=== PATIENT | male | born 1960 | race Caucasian/White ===

== ENCOUNTER → 2020-11-12 | Outpatient (CLI) | payer BC ==
--- NOTE | 2020-11-12 14:03 | CT ---
EXAMINATION TYPE: CT chest w con DATE OF EXAM: 11/12/2020 COMPARISON: None HISTORY: Mediastinal adenopathy CT DLP: 445.8 mGycm Automated exposure control for dose reduction was used. CONTRAST: CT scan of the chest is performed with IV Contrast, patient injected with 100 mL of Isovue 300. FINDINGS: LUNGS: The lungs are grossly clear, there is no concerning parenchymal mass or nodule identified. T here is no pleural effusion or pneumothorax seen. The tracheobronchial tree is patent. Mediastinum and hilar structures: There is evidence of a mediastinal and hilar adenopathy. Right para tracheal lymph nodes measure up to 1 cm. Low right paratracheal lymph nodes measure up to 1.5 cm. AP window adenopathy measures up to 1.2 cm. Subcarinal adenopathy measures up to 1.8 cm. Left hilar alo opathy measures up to 1.8 cm. Right hilar adenopathy measures up to 1.8 cm. UPPER ABDOMEN: No significant abnormality appreciated. OTHER: No additional significant abnormality is seen. IMPRESSION: Nonspecific mediastinal and hilar adenopathy.
== END | disposition home or self-care (01) ==
LOC: RADCTMAIN 12:51
PROVIDERS: ATTEND Urology
DX: R59.0 Localized enlarged lymph nodes (principal); D38.3 Neoplasm of uncertain behavior of mediastinum
CPT/HCPCS: 71260; Q9967

== ENCOUNTER → 2021-03-28 | Outpatient (CLI) | payer OTHER ==
--- NOTE | 2021-03-28 15:23 | XR ---
EXAMINATION TYPE: XR lumbar spine 2 or 3V DATE OF EXAM: 03/28/2021 CLINICAL HISTORY: Back pain after lifting injury. TECHNIQUE: Frontal and lateral images of the lumbar spine are obtained. COMPARISON: None. FINDINGS: There are 5 lumbar type vertebral bodies identified. The lumbar spine shows straightened alignment without evidence of acute fracture or dislocation. Vertebral body heights are within normal limits. Mild to moderate multilevel disc space narrowing with relative sparing of L4-L5 level. Mild multilevel anterior spurring. The overlying soft tissue appears unremarkable. IMPRESSION: As above.
== END | disposition home or self-care (01) ==
LOC: RADXRMAIN 15:00
PROVIDERS: ATTEND Emergency Medicine
DX: M51.36 Other intervertebral disc degeneration, lumbar region (principal); X50.0XXA Overexertion from strenuous movement or load, initial encounter
CPT/HCPCS: 72100

== ENCOUNTER → 2021-04-15 | Outpatient (CLI) | payer BC ==
--- NOTE | 2021-04-15 10:07 | CT ---
EXAMINATION TYPE: CT chest w con DATE OF EXAM: 04/15/2021 COMPARISON: Chest CT November 12, 2020 HISTORY: Localized enlarged lymph nodes CT DLP: 421.6 mGycm. Automated Exposure Control for Dose Reduction was Utilized. TECHNIQUE: CT scan of the thorax is performed following with IV Contrast, patient injected with 100 mL of Isovue 300. FINDINGS: LUNGS: Mild right apical linear scarring redemonstrated. No new or enlarging greater than 5 mm pulmon mercedes nodules or masses. No pleural effusion or pneumothorax seen bilaterally. MEDIASTINUM: There are persistent abnormal enlarged thoracic lymph nodes. . Reference right paratrach eal lymph node measures 2.4 x 1.7 cm axial image 22 similar to prior study image 24. Prominent border line enlarged prevascular and AP window lymph nodes lung with additional paratracheal lymph nodes. St able enlarged 2.1 x 1.8 cm anterior right hilar lymph node axial image 27. Stable enlarged 3.3 x 1.6 cm subcarinal lymph node on axial image 31. No cardiomegaly or pericardial effusion is seen. OTHER: Small sized hiatal hernia redemonstrated. Stable nonspecific hypodense lesion right hepatic lo be axial image 52 presumed benign. Few scattered colonic diverticula are redemonstrated. Mild multile gali spurring in the spine. Flame-shaped bilateral subareolar gynecomastia redemonstrated. IMPRESSION: Stable nonspecific thoracic adenopathy without pulmonary parenchymal nodules or masses. C orrelate clinically.
== END | disposition home or self-care (01) ==
LOC: RADCTMAIN 09:25
PROVIDERS: ATTEND Internal Medicine Hematology & Oncology
DX: R59.0 Localized enlarged lymph nodes (principal)
CPT/HCPCS: 71260; Q9967

== ENCOUNTER → 2021-08-13 | Outpatient (CLI) | payer BC, OTHER | END | disposition home or self-care (01) | LOC: LABWHC1 20:39 | PROVIDERS: ATTEND Emergency Medicine | DX: U07.1 COVID-19 (principal) | CPT/HCPCS: 87635 ==

== ENCOUNTER → 2021-08-13 | Outpatient (CLI) | payer BC, OTHER | END | disposition home or self-care (01) | LOC: LABWHC1 06:44 | PROVIDERS: ATTEND Emergency Medicine | DX: Z20.822 Contact with and (suspected) exposure to COVID-19 (principal) | CPT/HCPCS: 87635 ==

== ENCOUNTER → 2022-02-10 | Outpatient (CLI) | payer BC ==
--- NOTE | 2022-02-10 12:25 | CT ---
EXAMINATION TYPE: CT abdomen pelvis w con DATE OF EXAM: 02/10/2022 COMPARISON: None HISTORY: Prostate cancer. CT DLP: 1349.1 mGycm CONTRAST: CT scan of the abdomen and pelvis is performed with Oral Contrast and with IV Contrast, patient injec david with 70ml mL of Isovue 300. FINDINGS: LUNG BASES-: No visible nodule. No infiltrate. LIVER/GB: No calcified gallstones. 8 mm cyst at the dome of the liver. No solid hepatic lesions are detected. Biliary tree is of normal caliber. PANCREAS: No inflammation. No distinct mass. SPLEEN: No splenic enlargement. No lesion seen. ADRENALS: No nodule. No thickening. KIDNEYS/BLADDER: No hydronephrosis. No nephrolithiasis. No distinct renal mass. Urinary bladder g rossly unremarkable. BOWEL: Normal appendix. Normal bowel caliber. No inflammation. GENITAL ORGANS: The prostate fossa is free of distinct mass or prostatic tissue. LYMPH NODES: No greater than 1cm abdominal or pelvic lymph nodes are appreciated. AORTA: No significant abnormality. OSSEOUS STRUCTURES: No significant abnormality is seen. OTHER: No significant additional abnormality is seen. IMPRESSION: 1. No CT evidence to suggest metastatic disease or recurrent disease.
== END | disposition home or self-care (01) ==
LOC: RADCTMAIN 10:03
PROVIDERS: ATTEND Urology
DX: C61 Malignant neoplasm of prostate (principal)
CPT/HCPCS: 74177; Q9967

== ENCOUNTER → 2022-05-23 | Outpatient (CLI) | payer BC ==
--- NOTE | 2022-05-23 22:20 | XR ---
EXAMINATION TYPE: XR chest 2V DATE OF EXAM: 05/23/2022 COMPARISON: Chest x-ray 11/15/2014 HISTORY: R06.9, history prostate carcinoma, shortness of breath TECHNIQUE: Frontal and lateral views of the chest are obtained. FINDINGS: There is no focal air space opacity, pleural effusion, or pneumothorax seen. The cardiac silhouette size is within normal limits. The osseous structures are intact. IMPRESSION: No acute cardiopulmonary process.
== END | disposition home or self-care (01) ==
LOC: RADXRMAIN 09:41
PROVIDERS: ATTEND Internal Medicine
DX: R06.9 Unspecified abnormalities of breathing (principal)
CPT/HCPCS: 71046

== ENCOUNTER 2023-01-23 03:12 | Emergency (ER) | payer BC ==
[2023-01-23 03:21] VITALS: BP 136/88; PULSE 82; RESP 16; TEMP 97.6
--- NOTE | 2023-01-23 03:46 | ED ---
General Adult HPI - General Chief complaint: ENT Stated complaint: LUMP ON NECK Time Seen by Provider: 01/23/23 03:27 Source: patient Mode of arrival: ambulatory - History of Present Illness Initial comments: Dictation was produced using [employer] dictation software. please excuse any grammatical, word or spelling errors. Chief Complaint: 63-year-old male presents with left submental lymphadenopathy History of Present Illness: This 63-year-old male presents emergency Department with palpable lymph node. States that is not painful it is however noticeable. Patient recently started a prostate cancer medication. Denies any fever or constitutional symptoms. No other lymph nodes noted. The ROS documented in this emergency department record has been reviewed and confirmed by me. Those systems with pertinent positive or negative responses have been documented in the HPI. All other systems are other negative and/or noncontributory. - Related Data Home Medications Medication Instructions Recorded Confirmed Omeprazole [PriLOSEC] 20 mg PO AC-BRKFST 05/28/15 06/02/15 Leuprolide Acetate [Lupron Depot] 7.5 mg IM ONCE 09/13/22 09/13/22 Metoprolol Succinate (ER) [Toprol 12.5 mg PO DAILY 09/13/22 09/13/22 XL] Previous Rx's Medication Instructions Recorded Albuterol Sulfate [Albuterol 1 puff PO Q4-6H PRN #8.5 gm 09/13/22 Sulfate Hfa] Azithromycin [Zithromax] 250 mg PO DIRECTED 5 Days #6 tab 09/13/22 Promethazine/Dextromethorphan 5 ml PO Q4-6H PRN #118 ml 09/13/22 [Promethazine-Dm Syrup] predniSONE 50 mg PO DAILY 5 Days #5 tablet 09/13/22 Allergies Allergy/AdvReac Type Severity Reaction Status Date / Time No Known Allergies Allergy Verified 01/23/23 03:20 Review of Systems ROS Statement: Those systems with pertinent positive or pertinent negative responses have been documented in the HPI. ROS Other: All systems not noted in ROS Statement are negative. Past Medical History Past Medical History: GERD/Reflux, Prostate Disorder Additional Past Medical History / Comment(s): prostate CA, sleep apnea History of Any Multi-Drug Resistant Organisms: None Reported Past Surgical History: Hernia Repair, Prostate Surgery Additional Past Surgical History / Comment(s): eye surgery Past Psychological History: No Psychological Hx Reported Smoking Status: Never smoker Past Alcohol Use History: None Reported Past Drug Use History: None Reported General Exam - General Exam Comments Initial Comments: PHYSICAL EXAM: General Impression: Alert and oriented x3, not in acute distress HEENT: Normocephalic atraumatic, extra-ocular movements intact, pupils equal and reactive to light bilaterally, mucous membranes moist, 1.5 x 1.5 cm submandibular lymph node on the left Cardiovascular: Heart regular rate and rhythm Chest: Able to complete full sentences, no retractions, no tachypnea Musculoskeletal: no peripheral edema Motor: no focal deficits noted Neurological: CN II-XII grossly intact, no focal motor or sensory deficits noted Skin: Intact with no visualized rashes Psych: Normal affect and mood Course Vital Signs 01/23/23 03:13 Temperature 97.6 F Pulse Rate 82 Respiratory 16 Rate Blood Pressure 136/88 O2 Sat by Pulse 100 Oximetry Medical Decision Making - Medical Decision Making Was pt. sent in by a medical professional or institution (, PA, FOSTER CARE WORKER, urgent care, hospital, or longterm...) When possible be specific @ -No Did you speak to anyone other than the patient for history (EMS, parent, family, police, friend...)? What history was obtained from this source @ -No Did you review nursing and triage notes (agree or disagree)? Why? @ -I reviewed and agree with nursing and triage notes Were old charts reviewed (outside hosp., previous admission, EMS record, old EKG, old radiological studies, urgent care reports/EKG's, longterm records)? Report findings @ -No old charts were reviewed Differential Diagnosis (chest pain, altered mental status, abdominal pain women, abdominal pain men, vaginal bleeding, musculoskeletal, weakness, fever, dyspnea, syncope, headache, dizziness, GI bleed, back pain, seizure, CVA, palpatations, mental health)? @ -Lymphoma, leukemia, reactive lymphadenopathy, facial infection EKG interpreted by me (3pts min.). @ -None done X-rays interpreted by me (1pt min.). @ -None done CT interpreted by me (1pt min.). @ -None done U/S interpreted by me (1pt. min.). @ -None done What testing was considered but not performed or refused? (CT, X-rays, U/S, labs)? Why? @ -None What meds were considered but not given or refused? Why? @ -None Did you discuss the management of the patient with other professionals (professionals i.e. , PA, FOSTER CARE WORKER, lab, RT, psych nurse, geriatric social work professor, take off worker, teacher, fire prevention officer, bilingual case manager)? Give summary @ -No Was smoking cessation discussed for >3mins.? @ -No Was critical care preformed (if so, how long)? @ -No Were there social determinants of health that impacted care today? How? (Homelessness, low income, unemployed, alcoholism, drug addiction, t ransportation, low edu. Level, literacy, decrease access to med. care, correction, rehab)? @ -No Was there de-escalation of care discussed even if they declined (Discuss DNR or withdrawal of care, Hospice)? DNR status @ -No What co-morbidities impacted this encounter? (DM, HTN, Smoking, COPD, CAD, Cancer, CVA, ARF, Chemo, Hep., AIDS, mental health diagnosis, sleep apnea, morbid obesity)? @ -None Was patient admitted / discharged? Hospital course, mention meds given and route, prescriptions, significant lab abnormalities, going to OR and other pertinent info. @ -63-year-old male presents with left submandibular lymphadenopathy. Vital signs stable. No leukocytosis. Patient advised follow-up with primary care doctor for outpatient management of lymphadenopathy. Undiagnosed new problem with uncertain prognosis? @ -No Drug Therapy requiring intensive monitoring for toxicity (Heparin, Nitro, Insulin, Cardizem)? @ -No Were any procedures done? @ -No Diagnosis/symptom? Acute, or Chronic, or Acute on Chronic? Uncomplicated (with out systemic symptoms) or Complicated (systemic symptoms)? @ -Lymphadenopathy Side effects of treatment? @ -No Exacerbation, Progression, or Severe Exacerbation? @ -No Poses a threat to life or bodily function? How? (Chest pain, [place], [place], pneumonia, PE, COPD, DKA, ARF, appy, cholecystitis, CVA, Diverticulitis, Homicidal, Suicidal, threat to staff... and all critical care pts) @ -No - Lab Data Result diagrams: 01/23/23 04:17 01/23/23 03:44 Lab Results 06/17/23 06/17/23 Range/Units 03:44 04:17 WBC 4.8 (3.8-10.6) k/uL RBC 4.71 (4.30-5.90) m/uL Hgb 13.7 (13.0-17.5) gm/dL Hct 39.5 (39.0-53.0) % MCV 83.9 (80.0-100.0) fL MCH 29.0 (25.0-35.0) pg MCHC 34.6 (31.0-37.0) g/dL RDW 13.7 (11.5-15.5) % Plt Count 165 (150-450) k/uL MPV 8.0 Neutrophils % 74 % Lymphocytes % 14 % Monocytes % 7 % Eosinophils % 3 % Basophils % 0 % Neutrophils # 3.6 (1.3-7.7) k/uL Lymphocytes # 0.7 L (1.0-4.8) k/uL Monocytes # 0.3 (0-1.0) k/uL Eosinophils # 0.2 (0-0.7) k/uL Basophils # 0.0 (0-0.2) k/uL Sodium 138 (137-145) mmol/L Potassium 4.0 (3.5-5.1) mmol/L Chloride 105 (98-107) mmol/L Carbon Dioxide 26 (22-30) mmol/L Anion Gap 7 mmol/L BUN 21 H (9-20) mg/dL Creatinine 0.72 (0.66-1.25) mg/dL Est GFR (CKD-EPI)AfAm >90 (>60 ml/min/1.73 sqM) Est GFR (CKD-EPI)NonAf >90 (>60 ml/min/1.73 sqM) Glucose 92 (74-99) mg/dL Calcium 9.1 (8.4-10.2) mg/dL Disposition Clinical Impression: Lymphadenopathy Disposition: HOME SELF-CARE Condition: Good Instructions (If sedation given, give patient instructions): Lymphadenopathy (ED) Is patient prescribed a controlled substance at d/c from ED?: No Referrals: Narinder Fierro MD [Primary Care Provider] - 1-2 days Time of Disposition: 04:39
[2023-01-23 04:24] LABS: African American GFR (CKD) >90 (>60 ml/min/1.73 sqM); Anion Gap 7 mmol/L; Blood Urea Nitrogen 21 mg/dL (9-20); Calcium 9.1 mg/dL (8.4-10.2); Carbon Dioxide 26 mmol/L (22-30); Chloride 105 mmol/L (98-107); Glucose 92 mg/dL (74-99); Non-African American GFR(CKD) >90 (>60 ml/min/1.73 sqM); Sodium 138 mmol/L (137-145)
[2023-01-23 04:35] LABS: Basophils % (A) 0 %; Eosinophils # (A) 0.2 k/uL (0-0.7); Eosinophils % (A) 3 %; HCT 39.5 % (39.0-53.0); HGB 13.7 gm/dL (13.0-17.5); Lymphocytes # (A) 0.7 k/uL (1.0-4.8); Lymphocytes % (A) 14 %; MCHC 34.6 g/dL (31.0-37.0); MCV 83.9 fL (80.0-100.0); Monocytes # (A) 0.3 k/uL (0-1.0); Monocytes % (A) 7 %; Neutrophils # (A) 3.6 k/uL (1.3-7.7); Neutrophils % (A) 74 %; Platelet Count 165 k/uL (150-450); RBC 4.71 m/uL (4.30-5.90); RDW 13.7 % (11.5-15.5); WBC 4.8 k/uL (3.8-10.6)
== END 2023-01-23 04:43 | disposition home or self-care (01) ==
LOC: EC 03:12
DX: R59.1 Generalized enlarged lymph nodes (principal); K21.9 Gastro-esophageal reflux disease without esophagitis; Z79.899 Other long term (current) drug therapy
CPT/HCPCS: 36415; 80048; 85025; 99283

== ENCOUNTER → 2023-02-18 | Outpatient (CLI) | payer BC ==
--- NOTE | 2023-02-18 12:34 | MR ---
EXAMINATION TYPE: MR knee RT wo con DATE OF EXAM: 02/18/2023 COMPARISON: X-ray 01/27/2023 HISTORY: Right knee pain TECHNIQUE: Multiplanar, multisequence imaging of the right knee is performed without IV contrast. FINDINGS: MEDIAL MENISCUS: There is abnormal signal in the posterior horn and body of the medial meniscus dwight tible with mucoid degeneration. LATERAL MENISCUS: Anterior and posterior horns are intact without tear. CRUCIATE LIGAMENTS: The anterior and posterior cruciate ligaments are intact and unremarkable. COLLATERAL LIGAMENTS: The medial collateral ligament and lateral collateral ligament complex are inta ct and unremarkable. EXTENSOR MECHANISM: Visualized quadriceps and patellar tendons are intact. EFFUSION: No significant suprapatellar joint effusion. POPLITEAL CYST: There is a septated popliteal fossa cyst measuring 2.3 cm in greatest dimension. A p osterior to the distal diaphysis femur there is additional 2.3 cm multiseptated cystic structure. May represent a ganglion cyst. TRICOMPARTMENT SPACES: Mild narrowing in the medial compartment knee joint. No erosive changes. CARTILAGE: There is grade II chondromalacia involving the medial patellar facet measuring 3 mm. Fibri llation of the medial femoral articular cartilage also noted. BONE MARROW SIGNAL: Benign cysts seen within the proximal tibia. There is an area of marrow edema christy suring 5 mm within the lateral tibia likely reactive.. OTHER: No additional significant abnormality is appreciated. IMPRESSION: 1. Degenerative posterior horn medial meniscal tear with partial extrusion. 2. There is a 2.3 cm septated popliteal fossa cyst. Additional 2.3 septated cyst posterior to the dis dilshad diaphysis femur most likely represents a ganglion cyst. 3. Intrasubstance signal within the ACL suggestive of a ACL sprain or interstitial tear. No through t hickness tear. 4. Localized grade II chondromalacia of the medial femoral articular and medial patellar facet.
== END | disposition home or self-care (01) ==
LOC: RADMRIMAIN 10:15
PROVIDERS: ATTEND Orthopaedic Surgery
DX: S83.241A Other tear of medial meniscus, current injury, right knee, initial encounter (principal); M71.21 Synovial cyst of popliteal space [Baker], right knee; M94.261 Chondromalacia, right knee

== ENCOUNTER → 2023-03-10 | Outpatient (CLI) | payer BC ==
[2023-03-10 20:54] LABS: Basophils # (A) 0.03 X 10*3/uL (0.00-0.10); Basophils % (A) 0.5 %; Eosinophils # (A) 0.13 X 10*3/uL (0.04-0.35); Eosinophils % (A) 2.1 %; HCT 43.7 % (39.6-50.0); HGB 14.3 d/dL (13.0-17.0); Lymphocytes # (A) 1.08 X 10*3/uL (0.90-5.00); Lymphocytes % (A) 17.4 %; MCH 29.4 pg (27.0-32.0); MCHC 32.7 d/dL (32.0-37.0); MCV 89.7 FL (80.0-97.0); Mean Platelet Volume 10.8 FL (9.5-12.2); Monocytes # (A) 0.51 X 10*3/uL (0.20-1.00); Monocytes % (A) 8.2 %; NRBC Per 100 WBC 0 X 10*3/uL (0.00-0.01); Neutrophils # (A) 4.44 X 10*3/uL (1.80-7.70); Neutrophils % (A) 71.3 %; Platelet Count 225 X 10*3/uL (140-440); RBC 4.87 X 10*6/uL (4.40-5.60); RDW 13.6 % (11.5-14.5); WBC 6.22 X 10*3/uL (4.50-10.00)
[2023-03-10 21:04] LABS: Anion Gap 9.9 mmol/L (4.00-12.00); Carbon Dioxide 30.1 mmol/L (21.6-31.8); Potassium 4.7 mmol/L (3.5-5.5)
== END | disposition home or self-care (01) ==
LOC: LABWHC1 14:27
PROVIDERS: ATTEND Orthopaedic Surgery
DX: Z01.818 Encounter for other preprocedural examination (principal); M23.91 Unspecified internal derangement of right knee; I44.4 Left anterior fascicular block; R94.31 Abnormal electrocardiogram [ECG] [EKG]
CPT/HCPCS: 36415; 80051; 85025; 93005

== ENCOUNTER → 2023-03-31 | Day surgery (SDC) | payer BC ==
[2023-03-23 15:57] VITALS: BMI 30.5
--- NOTE | 2023-03-30 14:15 | HP ---
HISTORY AND PHYSICAL DATE OF SURGERY: 03/31/2023. HISTORY OF PRESENT ILLNESS: Armando Weinstein is a 63-year-old gentleman seen with progressive right knee pain. We discussed options for treatment. He elected to proceed with right knee arthroscopy. Consent regarding procedure was obtained. PAST MEDICAL HISTORY: Hypertension. PAST SURGICAL HISTORY: Herniorrhaphy. DAILY MEDICATIONS: 1. Metoprolol. 2. Ibuprofen. ALLERGIES: None. SOCIAL HISTORY: Denies tobacco use. PHYSICAL EVALUATION OF THE RIGHT KNEE: Range of motion is 0 to 125 degrees. Mild effusion. Tenderness, medial joint line. Positive medial Zhao's. Ligaments stable. Hip rotation without pain. Distal neurovascular exam intact. RADIOGRAPHS: Right knee radiographs revealed mild osteoarthritis. MRI of right knee revealed medial meniscal tear and popliteal cyst. IMPRESSION: 1. Internal derangement of right knee with medial meniscal tear. 2. Hypertension. PLAN: Right knee arthroscopy with partial medial meniscectomy and debridement. MMODL / IJN: [id number] /
[~2023-03-31] MED LIST: BUPIVACAINE (PF) 0.25% 10 ML VIAL MISCELLANE ONE; DEXAMETHASONE SOD PHOSPHATE 4 MG/ML 1 ML VIAL IV ONE; HYDROmorphone 0.5 MG/0.5 ML SYRINGE IVP PRN; LACTATED RINGERS 1,000 ML IV SCH; LIDOCAINE 2% INJ 20 MG/ML (2 ML VIAL) ONE; MIDAZOLAM 2 MG/2 ML VIAL ONE; ONDANSETRON 4 MG/2 ML VIAL IVP ONE; PROPOFOL 10 MG/ML 20 ML VIAL IV ONE; fentaNYL (PF) 50 MCG/ML 2 ML AMP ONE
[2023-03-31 10:47] VITALS: TEMP 97.5
--- NOTE | 2023-03-31 10:47 | P.OP ---
Date of Procedure: 03/31/23 Preoperative Diagnosis: Internal derangement right knee Postoperative Diagnosis: 1. Tear medial and lateral meniscus right knee 2. Grade 4 chondromalacia medial femoral condyle right knee 3. Reactive synovitis medial, lateral and suprapatellar compartments right knee Procedure(s) Performed: 1. Arthroscopic partial medial and lateral meniscectomy right knee 2. Arthroscopic microfracture medial femoral condyle right knee 3. Arthroscopic partial synovectomy medial, lateral and suprapatellar compartments Anesthesia: GUNNARA, local Surgeon: Rodney Beckwith Estimated Blood Loss (ml): 6 Pathology: none sent Condition: stable Disposition: PACU Indications for Procedure: 63-year-old gentleman seen with progressive right knee pain. After treatment options were discussed, he elected to proceed with arthroscopy. Operative Findings: See description of procedure Description of Procedure: Patient was taken to the operative suite. Patient underwent a general anesthetic by the department of anesthesia. Patient was given preoperative antibiotics. The right lower extremity was placed in a well-padded arthroscopic leg tompkins. The right leg was prepped and draped in the normal sterile orthopedic fashion. A lateral parapatellar and suprapatellar incision was made. Trochars were inserted. Arthroscopy was initiated. Suprapatellar pouch revealed diffuse thick reactive synovitis. The patellofemoral joint appeared to articulate congruently. There was grade 1 chondromalacia the patella without success osteochondral tears.. The scope was guided into the medial gutter. No loose bodies or plica were identified. The scope was then guided into the medial compartment. A medial parapatellar incision was made. Trocar inserted followed by probe. There was a complex tear involving the posterior horn of the medial meniscus. There was one area of grade 4 chondromalacia involving the posterior aspect of the medial femoral condyle weightbearing surface measuring about 1 cm. There was some thick reactive synovitis anteriorly. I performed a partial medial meniscectomy getting down to stable meniscal tissue. I performed a chondroplasty of the medial femoral condyle getting down to stable osteochondral tissue. I performed a partial synovectomy decompressing the thick reactive synovitis. I now introduced a microfracture awl and performed a microfracture to that area of exposed bone medial femoral condyle penetrating the bone with resultant bleeding at the microfracture site. The residual meniscus was probed and was found to be stable. There was good decompression of the synovitis. Scope and probe were then guided into the intercondylar notch. Cruciates were identified, probed and found to be stable. The scope and probe were then guided into lateral compartment. There was a radial tear involving the posterior horn lateral meniscus. There were grade 1 chondromalacia changes of the lateral femoral condyle and tibial plateau. There was some thick reactive synovitis anteriorly. I performed a partial lateral meniscectomy getting down to stable meniscal tissue. I performed a partial synovectomy decompressing the thick reactive synovitis anteriorly. The residual meniscus was probed and was found to be stable. There was good decompression of the synovitis. The scope was in guided back into the suprapatellar compartment. I introduced a motorized shaver into the suprapatellar compartment. I debrided some piecemeal fragments of meniscus that I encountered. I performed a partial synovectomy. Shaver was now removed. There was good decompression of the synovitis. I now took one more look around the entire knee, no residual debris. Instruments were now removed from the joint. The joint was infiltrated with .25% Marcaine. Steri-Strips were applied to the portal sites. Sterile dressings were applied. The patient was placed into a CADY hose. No tourniquet was utilized. The patient was awakened, transferred to a bed and taken to recovery stable satisfactory condition.
[2023-03-31 12:32] VITALS: BP 120/62; PULSE 66; RESP 12
== END | disposition home or self-care (01) ==
LOC: OR 08:39
PROVIDERS: ATTEND Orthopaedic Surgery
DX: S83.231A Complex tear of medial meniscus, current injury, right knee, initial encounter (principal); S83.281A Other tear of lateral meniscus, current injury, right knee, initial encounter; M65.161 Other infective (teno)synovitis, right knee; M22.41 Chondromalacia patellae, right knee; I10 Essential (primary) hypertension; G47.33 Obstructive sleep apnea (adult) (pediatric); X58.XXXA Exposure to other specified factors, initial encounter; Z79.891 Long term (current) use of opiate analgesic; Z79.1 Long term (current) use of non-steroidal anti-inflammatories (NSAID); Z79.899 Other long term (current) drug therapy; Z98.890 Other specified postprocedural states
CPT/HCPCS: 29880; 29879; J2250; J1100; J0690; J2405; J3010; J2704; J2001; J0665

== ENCOUNTER → 2023-05-12 | Outpatient (CLI) | payer BC ==
--- NOTE | 2023-05-15 14:21 | MR ---
EXAMINATION TYPE: MR knee LT wo con DATE OF EXAM: 05/12/2023 COMPARISON: Outside left knee x-rays May 04, 2023 HISTORY: Left Knee pain in kneecap for years. TECHNIQUE: Multiplanar, multisequence images of the knee is performed without IV contrast. FINDINGS: MEDIAL MENISCUS: Triangular area of horizontal increased signal posterior horn does not definitively extend to articular surface. LATERAL MENISCUS: Anterior and posterior horns are intact without tear. CRUCIATE LIGAMENTS: The anterior and posterior cruciate ligaments are intact and unremarkable. COLLATERAL LIGAMENTS: The medial collateral ligament and lateral collateral ligament complex are inta ct and unremarkable. EXTENSOR MECHANISM: Visualized quadriceps and patellar tendons are intact. EFFUSION: Small size suprapatellar joint effusion. POPLITEAL CYST: No popliteal/patterson cyst. TRICOMPARTMENT SPACES: Mild to moderate tricompartment joint space loss without significant spurring. CARTILAGE: Tricompartmental articular cartilage is preserved. BONE MARROW SIGNAL: No focal abnormal marrow signal is appreciated. OTHER: No additional significant abnormality is appreciated. IMPRESSION: 1. Buir-kz-vyucably joint compartment degenerative changes as detailed above. 2. Small-sized suprapatellar joint effusion. 3. Intrasubstance tear posterior horn of medial meniscus, no full-thickness meniscal or ligamentous t ear clearly seen.
== END | disposition home or self-care (01) ==
LOC: RADMRIMAIN 10:55
PROVIDERS: ATTEND Orthopaedic Surgery
DX: M17.12 Unilateral primary osteoarthritis, left knee (principal); M23.322 Other meniscus derangements, posterior horn of medial meniscus, left knee; M25.462 Effusion, left knee

== ENCOUNTER → 2023-05-17 | Outpatient (CLI) | payer BC ==
[2023-05-17 16:24] LABS: Prostate Specific Antigen <0.01 ng/mL (0.000-4.500)
== END | disposition home or self-care (01) ==
LOC: LABWHC1 08:32
PROVIDERS: ATTEND Urology
DX: C61 Malignant neoplasm of prostate (principal)
CPT/HCPCS: 36415; 84153; 84403

== ENCOUNTER 2023-06-24 07:50 | Day surgery (SDC) | payer BC ==
--- NOTE | 2023-06-24 01:31 | HP ---
HISTORY AND PHYSICAL DATE OF SURGERY: 06/24/2023. HISTORY OF PRESENT ILLNESS: Armando Weinstein is a 63-year-old gentleman seen progressive left knee pain. We discussed options for treatment. He elected to proceed with left knee arthroscopy. Consent is obtained. PAST MEDICAL HISTORY: Hypertension. PAST SURGICAL HISTORY: Herniorrhaphy. MEDICATIONS: Metoprolol, ibuprofen. ALLERGIES: None. SOCIAL HISTORY: Denies tobacco use. PHYSICAL EVALUATION OF THE LEFT KNEE: His range of motion is 0 to 125 degrees. Mild effusion. Tenderness along the medial lateral joint lines. Positive medial Zhao's. Ligaments stable. Hip rotation without pain. Distal neurovascular exam is intact. IMAGING STUDIES: Left knee radiographs reveal mild osteoarthritis, left knee. MRI revealed medial meniscal tear. IMPRESSION: 1. Internal derangement of left knee medial meniscal tear. 2. Hypertension. PLAN: Left knee arthroscopy with partial medial meniscectomy and debridement. MMODL / IJN: [id number] /
[~2023-06-24 07:50] MED LIST changes: -BUPIVACAINE (PF) 0.25% 10 ML VIAL MISCELLANE ONE; +LIDOCAINE 1% (10MG/ML) FOR IV START INTRADERMA PRN; -LIDOCAINE 2% INJ 20 MG/ML (2 ML VIAL) ONE; -MIDAZOLAM 2 MG/2 ML VIAL ONE; -PROPOFOL 10 MG/ML 20 ML VIAL IV ONE; +droPERidol 5 MG/2 ML VIAL IVP ONE; -fentaNYL (PF) 50 MCG/ML 2 ML AMP ONE
[2023-06-24 08:19] VITALS: TEMP 96.9
[2023-06-24] MEDS ORDERED: BUPIVACAINE (PF) 0.25% 30 ML VIAL MISCELLANE ONE ×2 (09:22→10:04)
[2023-06-24] MEDS ORDERED: MIDAZOLAM 2 MG/2 ML VIAL ONE (09:24)
[2023-06-24] MEDS ORDERED: LIDOCAINE 1% INJ 10MG/ML (20 ML MDV) ONE (09:24)
[2023-06-24] MEDS ORDERED: fentaNYL (PF) 50 MCG/ML 2 ML AMP ONE (09:24)
[2023-06-24] MEDS ORDERED: PROPOFOL 10 MG/ML 20 ML VIAL IV ONE (09:24)
[2023-06-24] MEDS ORDERED: KETOROLAC 15 MG/ML 1 ML VIAL ONE (09:24)
--- NOTE | 2023-06-24 10:21 | P.OP ---
Date of Procedure: 06/24/23 Preoperative Diagnosis: Internal derangement left knee Postoperative Diagnosis: 1. Tear medial meniscus left knee 2. Grade 4 chondromalacia femoral sulcus left knee 3. Reactive synovitis medial, lateral and suprapatellar compartments left knee 4. Grade 2 chondromalacia medial femoral condyle left knee 5. Medial plica left knee Procedure(s) Performed: 1. Arthroscopic partial medial meniscectomy left knee 2. Arthroscopic microfracture femoral sulcus left knee 3. Arthroscopic partial synovectomy medial, lateral and suprapatellar compartments left knee 4. Arthroscopic chondroplasty medial femoral condyle left knee 5. Arthroscopic resection medial plica left knee Anesthesia: GUNNARA, local Surgeon: Rodney Beckwith Estimated Blood Loss (ml): 5 Pathology: none sent Condition: stable Disposition: PACU Indications for Procedure: 63-year-old patient seen with progressive left knee pain. After having treatment options discussed, he elected to proceed with arthroscopy. Operative Findings: see description of procedure Description of Procedure: Patient was taken to the operative suite. Patient underwent a general anesthetic by the department of anesthesia. Patient was given preoperative antibiotics. The left lower extremity was placed in a well-padded arthroscopic leg tompkins. The left leg was prepped and draped in the normal sterile orthopedic fashion. A lateral parapatellar and suprapatellar incision was made. Trochars were inserted. Arthroscopy was initiated. Suprapatellar pouch revealed diffuse thick reactive synovitis. The patellofemoral joint appeared to articulate congruently. There as grade 3/4 chondromalacia involving the femoral sulcus with some peripheral osteochondral flap tears present. I couldn't visualize an area of exposed bone as well.. The scope was guided into the medial gutter. No loose bodies were identified. There was a plica that impinged along the medial femoral condyle with range of motion. The scope was then guided into the medial compartment. A medial parapatellar incision was made. Trocar inserted followed by probe. There was a tear involving the posterior horn of the medial meniscus. There were grade 2 chondromalacia changes of the medial femoral condyle with a large osteochondral flap tear. There was thick reactive synovitis anteriorly. I performed a partial medial meniscectomy getting down to stable meniscal tissue. I performed a chondrop lasty of the medial femoral condyle getting down to stable osteochondral tissue. I performed a partial synovectomy decompressing the reactive synovitis anteriorly. The residual meniscus was probed and was found to be stable. The residual osteochondral surface was stable. There was good decompression of the synovitis anteriorly. Scope and probe were then guided into the intercondylar notch. Cruciates were identified, probed and found to be stable. The scope and probe were then guided into lateral compartment. Lateral meniscus was probed and was found to be stable. There was no chondromalacia present. There was some reactive synovitis anteriorly. I introduced a motorized shaver and I performed a partial synovectomy decompressing the thick reactive synovitis. I noted good decompression of the synovitis. The scope was in guided back into the suprapatellar compartment. I introduced a motorized shaver into the suprapatellar compartment. I debrided some piecemeal fragments of meniscus I encountered. I now resected that plica. I took the knee through range of motion noted complete resection of the plica with no impingement medially. I now performed a chondroplasty of the femoral sulcus getting down to stable osteochondral tissue. I again noted that area of exposed bone. I introduced a microfracture awl and I performed a microfracture to the area of exposed bone penetrating the bone with resultant bleeding at the microfracture site. The residual osteochondral surface was probed and was found to be stable. I now took one more look around the entire knee, no residual debris. Instruments were now removed from the joint. The joint was infiltrated with .25% Marcaine. Steri-Strips were applied to the portal sites. Sterile dressings were applied. The patient was placed into a CADY hose. No tourniquet was utilized. The patient was awakened, transferred to a bed and taken to recovery stable satisfactory condition.
[2023-06-24 10:54] VITALS: RESP 16
[2023-06-24 11:45] VITALS: BP 119/55; PULSE 69
== END 2023-06-24 11:38 | disposition home or self-care (01) ==
LOC: OR 07:50
PROVIDERS: ATTEND Orthopaedic Surgery
DX: S83.242A Other tear of medial meniscus, current injury, left knee, initial encounter (principal); M67.52 Plica syndrome, left knee; M94.262 Chondromalacia, left knee; I10 Essential (primary) hypertension; X58.XXXA Exposure to other specified factors, initial encounter; Z79.899 Other long term (current) drug therapy
CPT/HCPCS: 29881; 29879; J2250; J1100; J0690; J2405; J2001; J3010; J1885; J2704; J0665

== ENCOUNTER → 2023-10-20 | Outpatient (CLI) | payer BC ==
--- NOTE | 2023-10-21 12:27 | P.PCN ---
Description of Procedure: CLINICAL: A home sleep apnea test has been done for confirmation of possible obstructive sleep apnea-hypopnea syndrome. DESCRIPTION OF PROCEDURE: RESULTS: Recording time was 8 hours 26 minutes. Evaluation time was 8 hours 13 minutes. Evaluation time is sufficient for making conclusion about results of the test. Raw data of sleep recording has been reviewed and is adequate. Respiratory channel showed 18 apneas and 106 hypopneas. Apnea-hypopnea index was 15.1 per hour. Pulse rate in the range between minimum 60 to, maximum 113, average 75 by computer calculation. Lowest desaturation was 85%. IMPRESSION: 1. Moderate Obstructive Sleep Apnea Hypopnea Syndrome. Please see other impressions from consultation. PLAN: 1. The patient will be started on auto-PAP treatmentfor correction of respiratory abnormallities during sleep. 2. I will see patient for follow up visit to discuss results of the test, evaluate clinical response on treatment with PAP therapy and make any necessary adjustments related to mask fitting, pressure, and humidification. 3. Watching and losing weight. 4. Sleep hygiene with regular time in bed for at least 8 hours. 5. No driving if feeling any sleepiness. Thank you very much for allowing me to participate in the management of your patient. Sincerely, Vincent Reed MD, PhD, FAASM Diplomat of [place] [employer] Sleep Medicine Board of [place] [employer] Professor of [facility] [place]
== END ==
LOC: 3 N SLEEP 16:47
PROVIDERS: ATTEND Internal Medicine
DX: G47.33 Obstructive sleep apnea (adult) (pediatric) (principal)

== ENCOUNTER → 2023-11-08 | Outpatient (CLI) | payer BC ==
[2023-11-08 17:30] LABS: Prostate Specific Antigen <0.01 ng/mL (0.000-4.500)
== END | disposition home or self-care (01) ==
LOC: LABWHC1 13:09
PROVIDERS: ATTEND Urology
DX: C61 Malignant neoplasm of prostate (principal)
CPT/HCPCS: 36415; 84153; 84403

== ENCOUNTER → 2023-11-16 | Outpatient (CLI) | payer BC ==
[2023-11-16 16:21] LABS: Basophils # (A) 0.03 X 10*3/uL (0.00-0.10); Basophils % (A) 0.6 %; Eosinophils # (A) 0.15 X 10*3/uL (0.04-0.35); Eosinophils % (A) 2.8 %; HCT 42.5 % (39.6-50.0); HGB 14.1 g/dL (13.0-17.0); Lymphocytes # (A) 0.83 X 10*3/uL (0.90-5.00); Lymphocytes % (A) 15.6 %; MCH 29.4 pg (27.0-32.0); MCHC 33.2 g/dL (32.0-37.0); MCV 88.7 FL (80.0-97.0); Mean Platelet Volume 10.6 FL (9.5-12.2); Monocytes # (A) 0.42 X 10*3/uL (0.20-1.00); Monocytes % (A) 7.9 %; NRBC Per 100 WBC 0 X 10*3/uL (0.00-0.01); Neutrophils # (A) 3.88 X 10*3/uL (1.80-7.70); Neutrophils % (A) 72.7 %; Platelet Count 238 X 10*3/uL (140-440); RBC 4.79 X 10*6/uL (4.40-5.60); RDW 13.2 % (11.5-14.5); WBC 5.33 X 10*3/uL (4.50-10.00)
[2023-11-16 16:35] LABS: BUN/Creat Ratio 22.44 Ratio (12.00-20.00); Blood Urea Nitrogen 20.2 mg/dL (9.0-27.0); Carbon Dioxide 28.7 mmol/L (21.6-31.8); Chloride 102 mmol/L (96-109); Glucose 101 mg/dL (70-110); Potassium 4.2 mmol/L (3.5-5.5); Sodium 140 mmol/L (135-145)
[2023-11-16 16:36] LABS: ALT 18 U/L (10-49); AST 21 U/L (14-35); Albumin 4.3 g/dL (3.8-4.9); Albumin/Globulin Ratio 1.59 Ratio (1.60-3.17); Alkaline Phosphatase 87 U/L (41-126); Calcium 10.2 mg/dL (8.7-10.3); Globulin 2.7 g/dL (1.6-3.3); Total Bilirubin 0.6 mg/dL (0.3-1.2)
== END | disposition home or self-care (01) ==
LOC: LABWHC1 08:17
PROVIDERS: ATTEND Family Medicine
DX: C79.82 Secondary malignant neoplasm of genital organs (principal); I10 Essential (primary) hypertension; H93.13 Tinnitus, bilateral; G47.30 Sleep apnea, unspecified; R42 Dizziness and giddiness
CPT/HCPCS: 36415; 80053; 84443; 85025

== ENCOUNTER → 2023-12-11 | Outpatient (CLI) | payer BC ==
--- NOTE | 2023-12-11 15:37 | MR ---
EXAMINATION TYPE: MR brain wo/w con DATE OF EXAM: 12/11/2023 COMPARISON: None HISTORY: Vertigo, tinnitus, hx prostate cancer. CONTRAST: Performed utilizing 9 mL intravenous Gadavist gadolinium contrast. TECHNIQUE: Multiplanar, multiecho imaging on a 3.0 Felicia magnet is performed through the brain. Stud y is performed within 24 hours of arrival to the hospital. The craniovertebral junction is normal. The pituitary is normal. Diffusion-weighted imaging is performed. No abnormal hyperintensity is present to suggest an acute i ntracranial infarct or acute ischemic change. Signal through the brain appears normal. No abnormal enhancement is evident. Ventricles and sulci are appropriate for the patient age. Internal auditory canals appear normal. No enhancement is evident. Cerebellopontine angles are clear. IMPRESSION: 1. Unremarkable pre and postcontrast MRI brain.
== END | disposition home or self-care (01) ==
LOC: RADMRIMAIN 13:41
PROVIDERS: ATTEND Family Medicine
DX: C79.82 Secondary malignant neoplasm of genital organs (principal); I10 Essential (primary) hypertension; R42 Dizziness and giddiness; H93.13 Tinnitus, bilateral
CPT/HCPCS: 70553; A9585

== ENCOUNTER 2024-01-31 04:50 | Emergency (ER) | payer BC ==
--- NOTE | 2024-01-31 06:22 | ED ---
SOB HPI - General Chief Complaint: Shortness of Breath Stated Complaint: Hypertension, Chest Congestion Time Seen by Provider: 01/31/24 05:58 Source: patient, RN notes reviewed Mode of arrival: ambulatory Limitations: no limitations - History of Present Illness Initial Comments: This is a 64-year-old male who presents to the emergency department for shor tness of breath. Symptoms started 2 to 3 days ago. His son states that his blood pressure and heart rate were both very high this evening, with his blood pressure getting up to 180/110. Patient states that he often forgets to take his blood pressure medication and has not taken it in the last 2 to 3 days. He has an occasional cough and chest congestion with this. Cough is occasionally productive. States that he has also been very fatigued lately. He does have prostate cancer that he is currently taking oral medications for. Not currently receiving chemotherapy. He does have some metastasis to the lymph nodes in his chest. He has felt hot but has not measured any fevers. Denies any sick contacts. MD Complaint: shortness of breath, cough - Related Data Home Medications Medication Instructions Recorded Confirmed Leuprolide Acetate [Lupron Depot] 7.5 mg IM Q180D 09/13/22 01/31/24 Enzalutamide [Xtandi] 160 mg PO DAILY 03/23/23 01/31/24 lisinopriL [Zestril] 5 mg PO DAILY 06/18/23 01/31/24 Meclizine [Antivert] 25 mg PO TID PRN 01/31/24 01/31/24 Previous Rx's Medication Instructions Recorded Albuterol Sulfate [Albuterol 1 - 2 puff PO Q4-6H PRN #8.5 gm 01/31/24 Sulfate Hfa] Benzonatate [Tessalon Perle] 200 mg PO TID PRN #30 capsule 01/31/24 Allergies Allergy/AdvReac Type Severity Reaction Status Date / Time No Known Allergies Allergy Verified 01/31/24 09:44 Review of Systems ROS Statement: Those systems with pertinent positive or pertinent negative responses have been documented in the HPI. ROS Other: All systems not noted in ROS Statement are negative. Past Medical History Past Medical History: Cancer, GERD/Reflux, Hypertension, Prostate Disorder, Sleep Apnea/CPAP/BIPAP Additional Past Medical History / Comment(s): prostate CA, History of Any Multi-Drug Resistant Organisms: None Reported Past Surgical History: Hernia Repair, Orthopedic Surgery, Prostate Surgery Additional Past Surgical History / Comment(s): eye surgery, rt knee scoped Past Anesthesia/Blood Transfusion Reactions: No Reported Reaction Additional Past Anesthesia/Blood Transfusion Reaction / Comment(s): woke up during surgery in past, Past Psychological History: No Psychological Hx Reported Smoking Status: Never smoker Past Alcohol Use History: None Reported Past Drug Use History: None Reported - Past Family History Mother Family Medical History: No Reported History General Exam Limitations: no limitations General appearance: alert, in no apparent distress Head exam: Present: atraumatic, normocephalic, normal inspection Respiratory exam: Present: normal lung sounds bilaterally. Absent: respiratory distress, wheezes, rales, rhonchi, stridor Cardiovascular Exam: Present: regular rate, normal rhythm, normal heart sounds. Absent: systolic murmur, diastolic murmur, rubs, gallop, clicks Neurological exam: Present: alert, oriented X3, CN II-XII intact Psychiatric exam: Present: normal affect, normal mood Skin exam: Present: warm, dry, intact, normal color. Absent: rash Course Vital Signs 01/31/24 01/31/24 01/31/24 04:53 04:57 06:41 Temperature 98.5 F 97.9 F Pulse Rate 122 H Respiratory 18 20 20 Rate Blood Pressure 137/86 132/91 O2 Sat by Pulse 98 94 L Oximetry 01/31/24 01/31/24 08:02 09:44 Temperature 98.1 F Pulse Rate 93 86 Respiratory 22 18 Rate Blood Pressure 157/82 137/87 O2 Sat by Pulse 100 97 Oximetry Medical Decision Making - Medical Decision Making This is a 64 year old male who presents to the emergency department for shortness of breath. Was pt. sent in by a medical professional or institution? @ -No Did you speak to anyone other than the patient for history? @ -No Did you review nursing and triage notes? @ -Yes, and I agree, it is accurate with regards to the patient's symptoms. Were old charts reviewed? @ -No Differential Diagnosis? @ -Differential Dyspnea: Coronary syndrome, arrhythmia, tamponade, asthma, COPD, pulmonary embolism, pneumonia, pneumothorax, pulmonary effusion, anaphylaxis, diabetic ketoacidosis, flailed chest, pulmonary contusion, diaphragmatic rupture, anemia, neuromu scular, this is not meant to be an all-inclusive list. EKG interpreted by me (3pts min.)? @ -EKG interpreted by me demonstrating the following: Sinus rhythm. Ventricular rate 85 bpm, ID interval 200 ms, QRS duration 97 ms, QTc 415 ms. X-rays interpreted by me (1pt min.)? @ -Chest x-ray obtained, my interpretation identifies no localized consoli dations or infiltrates. CT interpreted by me (1pt min.)? @ -Not obtained U/S interpreted by me (1pt. min.)? @ -Not obtained What testing was considered but not performed? (CT, X-rays, U/S, labs)? Why? @ -None What meds were considered but not given? Why? @ -None Did you discuss the management of the patient with other professionals? @ -No Did you reconcile home meds? @ -No Was smoking cessation discussed for >3mins.? @ -No Was critical care preformed (if so, how long)? @ -No Were there social determinants of health that impacted care today? How? (Homelessness, low income, unemployed, alcoholism, drug addiction, transportation, low edu. Level, literacy, decrease access to med. care, intermediate, rehab)? @ -No Was there de-escalation of care discussed even if they declined? (Discuss DNR or withdrawal of care, Hospice)? @ -No What co-morbidities impacted this encounter? (DM, HTN, Smoking, COPD, CAD, Cancer, CVA, Hep., AIDS, mental health diagnosis, sleep apnea, morbid obesity)? @ -Sleep apnea, prostate cancer Was patient admitted / discharged? @ -Discharged. Lab work demonstrates very mild leukocytosis and was otherwise unremarkable. D-dimer and troponin negative. Patient was initially tachycardic on arrival, however heart rate then improved and remained consistently under 100 bpm. While his blood pressure was reportedly elevated at home, it remained well-controlled in the emergency department. Symptoms may be related to a viral URI. Prescription for Tessalon Perles and albuterol inhaler provided with dosing instructions reviewed. Otherwise advised follow-up with his primary care provider. Undiagnosed new problem with uncertain prognosis? @ -None Drug Therapy requiring intensive monitoring for toxicity (Heparin, Nitro, Insu jie, Cardizem)? @ -None Were any procedures done? @ -None Diagnosis/symptom? @ -Viral URI/bronchitis Acute, or Chronic, or Acute on Chronic? @ -Acute Uncomplicated (without systemic symptoms) or Complicated (systemic symptoms)? @ -Uncomplicated Side effects of treatment? @ -None Exacerbation, Progression, or Severe Exacerbation] @ -Not applicable Poses a threat to life or bodily function? @ -No Return precautions reviewed in depth, the patient is instructed to return to the emergency department with any new, worsening, or concerning symptoms. Patient verbalized understanding. This case was discussed in detail with the attending ED physician, Dr. Brady. Presentation, findings, and treatment plan discussed in detail as well. - Lab Data Result diagrams: 01/31/24 06:53 01/31/24 06:53 Lab Results 01/31/24 01/31/24 01/31/24 Range/Units 06:53 06:53 06:53 WBC 10.7 H (3.8-10.6) k/uL RBC 5.05 (4.30-5.90) m/uL Hgb 14.7 (13.0-17.5) gm/dL Hct 45.1 (39.0-53.0) % MCV 89.3 (80.0-100.0) fL MCH 29.2 (25.0-35.0) pg MCHC 32.7 (31.0-37.0) g/dL RDW 13.1 (11.5-15.5) % Plt Count 220 (150-450) k/uL MPV 8.1 Neutrophils % 86 % Lymphocytes % 7 % Monocytes % 5 % Eosinophils % 2 % Basophils % 0 % Neutrophils # 9.2 H (1.3-7.7) k/uL Lymphocytes # 0.7 L (1.0-4.8) k/uL Monocytes # 0.5 (0-1.0) k/uL Eosinophils # 0.2 (0-0.7) k/uL Basophils # 0.0 (0-0.2) k/uL PT 10.2 (10.0-12.5) sec INR 0.9 (<1.2) APTT 25.4 (22.0-30.0) sec D-Dimer 0.40 (<0.60) mg/L FEU Sodium 139 (137-145) mmol/L Potassium 4.3 (3.5-5.1) mmol/L Chloride 104 (98-107) mmol/L Carbon Dioxide 26 (22-30) mmol/L Anion Gap 9 mmol/L BUN 15 (9-20) mg/dL Creatinine 0.67 (0.66-1.25) mg/dL Est GFR (CKD-EPI)AfAm >90 (>60 ml/min/1.73 sqM) Est GFR (CKD-EPI)NonAf >90 (>60 ml/min/1.73 sqM) Glucose 101 H (74-99) mg/dL Plasma Lactic Acid Yuan (0.7-2.0) mmol/L Calcium 9.8 (8.4-10.2) mg/dL Magnesium 2.0 (1.6-2.3) mg/dL Total Bilirubin 1.1 (0.2-1.3) mg/dL AST 29 (17-59) U/L ALT 17 (4-49) U/L Alkaline Phosphatase 118 (38-126) U/L Troponin I (0.000-0.034) ng/mL NT-Pro-B Natriuret Pep 460 pg/mL Total Protein 7.5 (6.3-8.2) g/dL Albumin 4.5 (3.5-5.0) g/dL Urine Color Urine Appearance (Clear) Urine pH (5.0-8.0) Ur Specific Hayes (1.001-1.035) Urine Protein (Negative) Urine Glucose (UA) (Negative) Urine Ketones (Negative) Urine Blood (Negative) Urine Nitrite (Negative) Urine Bilirubin (Negative) Urine Urobilinogen (<2.0) mg/dL Ur Leukocyte Esterase (Negative) Influenza Type A (PCR) (Not Detectd) Influenza Type B (PCR) (Not Detectd) RSV (PCR) (Not Detectd) SARS-CoV-2 (PCR) (Not Detectd) 01/31/24 01/31/24 01/31/24 Range/Units 06:53 06:53 07:57 WBC (3.8-10.6) k/uL RBC (4.30-5.90) m/uL Hgb (13.0-17.5) gm/dL Hct (39.0-53.0) % MCV (80.0-100.0) fL MCH (25.0-35.0) pg MCHC (31.0-37.0) g/dL RDW (11.5-15.5) % Plt Count (150-450) k/uL MPV Neutrophils % % Lymphocytes % % Monocytes % % Eosinophils % % Basophils % % Neutrophils # (1.3-7.7) k/uL Lymphocytes # (1.0-4.8) k/uL Monocytes # (0-1.0) k/uL Eosinophils # (0-0.7) k/uL Basophils # (0-0.2) k/uL PT (10.0-12.5) sec INR (<1.2) APTT (22.0-30.0) sec D-Dimer (<0.60) mg/L FEU Sodium (137-145) mmol/L Potassium (3.5-5.1) mmol/L Chloride (98-107) mmol/L Carbon Dioxide (22-30) mmol/L Anion Gap mmol/L BUN (9-20) mg/dL Creatinine (0.66-1.25) mg/dL Est GFR (CKD-EPI)AfAm (>60 ml/min/1.73 sqM) Est GFR (CKD-EPI)NonAf (>60 ml/min/1.73 sqM) Glucose (74-99) mg/dL Plasma Lactic Acid Yuan 1.2 (0.7-2.0) mmol/L Calcium (8.4-10.2) mg/dL Magnesium (1.6-2.3) mg/dL Total Bilirubin (0.2-1.3) mg/dL AST (17-59) U/L ALT (4-49) U/L Alkaline Phosphatase (38-126) U/L Troponin I <0.012 (0.000-0.034) ng/mL NT-Pro-B Natriuret Pep pg/mL Total Protein (6.3-8.2) g/dL Albumin (3.5-5.0) g/dL Urine Color Colorless Urine Appearance Clear (Clear) Urine pH 6.5 (5.0-8.0) Ur Specific Hayes 1.014 (1.001-1.035) Urine Protein Negative (Negative) Urine Glucose (UA) Negative (Negative) Urine Ketones Negative (Negative) Urine Blood Negative (Negative) Urine Nitrite Negative (Negative) Urine Bilirubin Negative (Negative) Urine Urobilinogen <2.0 (<2.0) mg/dL Ur Leukocyte Esterase Negative (Negative) Influenza Type A (PCR) (Not Detectd) Influenza Type B (PCR) (Not Detectd) RSV (PCR) (Not Detectd) SARS-CoV-2 (PCR) (Not Detectd) 01/31/24 Range/Units 07:57 WBC (3.8-10.6) k/uL RBC (4.30-5.90) m/uL Hgb (13.0-17.5) gm/dL Hct (39.0-53.0) % MCV (80.0-100.0) fL MCH (25.0-35.0) pg MCHC (31.0-37.0) g/dL RDW (11.5-15.5) % Plt Count (150-450) k/uL MPV Neutrophils % % Lymphocytes % % Monocytes % % Eosinophils % % Basophils % % Neutrophils # (1.3-7.7) k/uL Lymphocytes # (1.0-4.8) k/uL Monocytes # (0-1.0) k/uL Eosinophils # (0-0.7) k/uL Basophils # (0-0.2) k/uL PT (10.0-12.5) sec INR (<1.2) APTT (22.0-30.0) sec D-Dimer (<0.60) mg/L FEU Sodium (137-145) mmol/L Potassium (3.5-5.1) mmol/L Chloride (98-107) mmol/L Carbon Dioxide (22-30) mmol/L Anion Gap mmol/L BUN (9-20) mg/dL Creatinine (0.66-1.25) mg/dL Est GFR (CKD-EPI)AfAm (>60 ml/min/1.73 sqM) Est GFR (CKD-EPI)NonAf (>60 ml/min/1.73 sqM) Glucose (74-99) mg/dL Plasma Lactic Acid Yuan (0.7-2.0) mmol/L Calcium (8.4-10.2) mg/dL Magnesium (1.6-2.3) mg/dL Total Bilirubin (0.2-1.3) mg/dL AST (17-59) U/L ALT (4-49) U/L Alkaline Phosphatase (38-126) U/L Troponin I (0.000-0.034) ng/mL NT-Pro-B Natriuret Pep pg/mL Total Protein (6.3-8.2) g/dL Albumin (3.5-5.0) g/dL Urine Color Urine Appearance (Clear) Urine pH (5.0-8.0) Ur Specific Hayes (1.001-1.035) Urine Protein (Negative) Urine Glucose (UA) (Negative) Urine Ketones (Negative) Urine Blood (Negative) Urine Nitrite (Negative) Urine Bilirubin (Negative) Urine Urobilinogen (<2.0) mg/dL Ur Leukocyte Esterase (Negative) Influenza Type A (PCR) Not Detected (Not Detectd) Influenza Type B (PCR) Not Detected (Not Detectd) RSV (PCR) Not Detected (Not Detectd) SARS-CoV-2 (PCR) Not Detected (Not Detectd) - Radiology Data Radiology results: report reviewed, image reviewed Disposition Clinical Impression: Bronchitis, Viral URI Disposition: HOME SELF-CARE Instructions (If sedation given, give patient instructions): Acute Bronchitis (ED) Additional Instructions: Return to the emergency department with any new, worsening, or concerning symptoms. Take the cough medication up to every 8 hours as needed. You can use the albuterol inhaler every 4-6 hours as needed for shortness of breath. Make sure you get plenty of rest and remain well-hydrated. Follow up with your primary care provider in 1-2 days. Prescriptions: Albuterol Sulfate [Albuterol Sulfate Hfa] 1 - 2 puff PO Q4-6H PRN #8.5 gm PRN Reason: Shortness Of Breath Benzonatate [Tessalon Perle] 200 mg PO TID PRN #30 capsule PRN Reason: Cough Is patient prescribed a controlled substance at d/c from ED?: No Referrals: Narinder Fierro MD [Primary Care Provider] - 1-2 days Time of Disposition: 09:28
[2024-01-31 07:29] LABS: INR 0.9 (<1.2)
[2024-01-31 07:30] LABS: Partial Thromboplastin Time 25.4 sec (22.0-30.0); Prothrombin Time 10.2 sec (10.0-12.5)
[2024-01-31 07:32] LABS: Basophils % (A) 0 %; Eosinophils # (A) 0.2 k/uL (0-0.7); Eosinophils % (A) 2 %; HCT 45.1 % (39.0-53.0); HGB 14.7 gm/dL (13.0-17.5); Lymphocytes # (A) 0.7 k/uL (1.0-4.8); Lymphocytes % (A) 7 %; MCH 29.2 pg (25.0-35.0); MCHC 32.7 g/dL (31.0-37.0); MCV 89.3 fL (80.0-100.0); Mean Platelet Volume 8.1; Monocytes # (A) 0.5 k/uL (0-1.0); Monocytes % (A) 5 %; Neutrophils # (A) 9.2 k/uL (1.3-7.7); Neutrophils % (A) 86 %; Platelet Count 220 k/uL (150-450); RBC 5.05 m/uL (4.30-5.90); RDW 13.1 % (11.5-15.5); WBC 10.7 k/uL (3.8-10.6)
[2024-01-31 07:38] LABS: ALT 17 U/L (4-49); AST 29 U/L (17-59); African American GFR (CKD) >90 (>60 ml/min/1.73 sqM); Albumin 4.5 g/dL (3.5-5.0); Alkaline Phosphatase 118 U/L (38-126); Anion Gap 9 mmol/L; Blood Urea Nitrogen 15 mg/dL (9-20); Calcium 9.8 mg/dL (8.4-10.2); Carbon Dioxide 26 mmol/L (22-30); Chloride 104 mmol/L (98-107); Glucose 101 mg/dL (74-99); Non-African American GFR(CKD) >90 (>60 ml/min/1.73 sqM); Potassium 4.3 mmol/L (3.5-5.1); Sodium 139 mmol/L (137-145); Total Bilirubin 1.1 mg/dL (0.2-1.3); Total Protein 7.5 g/dL (6.3-8.2)
[2024-01-31 07:46] LABS: NT-Pro-B-Type Natriuretic Pept 460 pg/mL
[2024-01-31 08:03] VITALS: TEMP 98.1
[2024-01-31] MEDS: SODIUM CHLORIDE 0.9% 1,000 ML IV STA (08:03)
[2024-01-31] MEDS: BENZONATATE 100 MG CAP PO STA (08:08)
[2024-01-31 08:21] LABS: Appearance,Urine Clear (Clear); Bilirubin,Urine Negative (Negative); Blood,Urine Negative (Negative); Color,Urine Colorless; Glucose,Urine (UA) Negative (Negative); Ketones,Urine Negative (Negative); Leukocyte Esterase,Urine Negative (Negative); Nitrite,Urine Negative (Negative); PH, Urine 6.5 (5.0-8.0); Protein,Urine Negative (Negative); Specific Gravity,Urine 1.014 (1.001-1.035); Urobilinogen,Urine <2.0 mg/dL (<2.0)
[2024-01-31] MEDS: DEXAMETHASONE SOD PHOSPHATE 10 MG/ML 1 ML VIAL IVP STA (09:38)
[2024-01-31 09:46] VITALS: BP 137/87; PULSE 86; RESP 18
--- NOTE | 2024-02-01 13:56 | XR ---
EXAM: XR Chest, 2 Views CLINICAL HISTORY: pt arrives to ED for c/o SOB hx of prostate CA mets to lungs TECHNIQUE: Frontal and lateral views of the chest. COMPARISON: XR Chest dated 09/13/22 FINDINGS: Lungs: Unremarkable. No consolidation. Pleural space: Unremarkable. No pneumothorax. Heart: Unremarkable. No cardiomegaly. Mediastinum: Unremarkable. Normal mediastinal contour. Bones/joints: Unremarkable. No acute fracture. Other: Mildly elevated right hemidiaphragm IMPRESSION: No evidence of acute cardiopulmonary disease.
== END 2024-01-31 09:46 | disposition home or self-care (01) ==
LOC: EC 04:50
DX: J40 Bronchitis, not specified as acute or chronic (principal); J06.9 Acute upper respiratory infection, unspecified
CPT/HCPCS: 36415; 93005; 85379; 83880; 80053; 83605; 83735; 84484; 85025; 85610; 85730; 81003; 87636; 71046; 99285; 96374; 96361; J1100

== ENCOUNTER → 2024-02-09 | Outpatient (CLI) | payer BC ==
[2024-02-09 16:42] VITALS: BP 107/72; PULSE 86; RESP 16; TEMP 98.1
--- NOTE | 2024-02-09 17:38 | P.PROGSL ---
Subjective DATE: 02/09/2024 FOLLOW UP VISIT. Patient with obstructive sleep apnea hypopnea syndrome return to sleep center for follow-up visit. Recently patient had sleep study which documented obstructive sleep apnea hypopnea syndrome. Patient was initiated on PAP therapy and today is first visit after treatment was started. Patient was able to use PAP equipment every night for the whole night during the first months, but later he was not able to use it every night because he developed some discomfort in his throat. The patient does not have significant problems with the mask, PAP pressure and humidification. [place] sleepiness scale is significantly increased to 20. I checked information from PAP unit. PAP unit pressure 8-15, average 10.3 cm H2O. Usage is 70% for more then 4 hours, average 6 hours per night. Leak is 20.3 l/m, which is in acceptable range. Apnea Hypopnea Index is 3.3, which is normal. MEDICATIONS: Please see below During physical exam: GENERAL: A pleasant patient without any distress. VITAL SIGNS: Please see below, weight 243 pounds. HEENT: PERRLA, EOMI.low position of soft palate, Mall[place]ati 23. NECK: Supple. No JVD. LUNGS: Clear to percussion and to auscultation. Good air exchange. No wheezing or rhonchi. HEART: S1, S2 regular. ABDOMEN: Soft and nontender.[] EXTREMITIES: No clubbing or cyanosis. ACTUARY CLERK: Awake, alert, and oriented x3. No focal deficit. Impressions: 1. Obstructive sleep apnea-hypopnea syndrome. Patient demonstrated good compliance with treatment, benefiting from treatment. 2. Hypertension. 3. History of prostate cancer, status post prostatectomy and radiation therapy. 4. Status post inguinal hernia repair. 5. Status post bilateral arthroscopic knee surgery. I changed pressure in CPAP unit down to the level 6-12 cm of water. Plan: 1. Continue using PAP equipment every night for the whole night. We provided patient with different style nasal mask. 2. To change air filter at least 1-2 times per month. 3. PAP unit should stay lower then position of the head. 4. Advised patient to remove all remaining water from humidifier canister daily and make it dry after each usage. Refill canister with fresh distilled water before each usage. 5. Sleep hygiene with regular time in bed for at least 8 hours. 6. Precautions related to driving. No driving if feel any sleepiness. 7. I will maintain prescription for PAP supplies including mask, tube, filters. 8. Follow up visit in 6 months or earlier if patient has any problems. 9. Watching and losing weight. Thank you very much for allowing me to participate in the management of your patient. Vincent Reed MD, PhD, FAASM. Diplomat of [employer], Sleep Medicine Board by [employer] [facility] [place] Objective - Vital Signs Vital Signs: Vital Signs Temp 98.1 F 02/09/24 16:40 Pulse 86 02/09/24 16:40 Resp 16 02/09/24 16:40 BP 107/72 02/09/24 16:40 Pulse Ox 98 02/09/24 16:40 FiO2 Home Medications: Home Medications Medication Instructions Recorded Confirmed Type Leuprolide Acetate [Lupron Depot] 7.5 mg IM Q180D 09/13/22 01/31/24 History Enzalutamide [Xtandi] 160 mg PO DAILY 03/23/23 01/31/24 History lisinopriL [Zestril] 5 mg PO DAILY 06/18/23 01/31/24 History Albuterol Sulfate [Albuterol 1 - 2 puff PO Q4-6H PRN #8.5 gm 01/31/24 Rx Sulfate Hfa] Benzonatate [Tessalon Perle] 200 mg PO TID PRN #30 capsule 01/31/24 Rx Meclizine [Antivert] 25 mg PO TID PRN 01/31/24 01/31/24 History
== END ==
LOC: 3 N SLEEP 16:16
PROVIDERS: ATTEND Internal Medicine
DX: G47.33 Obstructive sleep apnea (adult) (pediatric) (principal); I10 Essential (primary) hypertension; Z99.89 Dependence on other enabling machines and devices; Z85.46 Personal history of malignant neoplasm of prostate; Z87.19 Personal history of other diseases of the digestive system; Z98.890 Other specified postprocedural states; Z92.3 Personal history of irradiation; Z90.79 Acquired absence of other genital organ(s); Z79.899 Other long term (current) drug therapy
CPT/HCPCS: 99212

== ENCOUNTER → 2024-05-10 | Outpatient (CLI) | payer BC ==
[2024-05-10 11:31] LABS: Prostate Specific Antigen <0.01 ng/mL (0.000-4.500)
== END | disposition home or self-care (01) ==
LOC: LABWHC1 08:06
PROVIDERS: ATTEND Urology
DX: C61 Malignant neoplasm of prostate (principal)
CPT/HCPCS: 36415; 84153; 84403

== ENCOUNTER → 2024-05-29 | Outpatient (CLI) | payer BC ==
[2024-05-29 16:06] LABS: Basophils # (A) 0.04 X 10*3/uL (0.00-0.10); Basophils % (A) 0.6 %; Eosinophils # (A) 0.18 X 10*3/uL (0.04-0.35); Eosinophils % (A) 2.8 %; Lymphocytes # (A) 0.95 X 10*3/uL (0.90-5.00); MCH 29.5 pg (27.0-32.0); MCHC 33.3 g/dL (32.0-37.0); MCV 88.6 FL (80.0-97.0); Mean Platelet Volume 11.5 FL (9.5-12.2); Monocytes # (A) 0.49 X 10*3/uL (0.20-1.00); Monocytes % (A) 7.7 %; NRBC Per 100 WBC 0 X 10*3/uL (0.00-0.01); Neutrophils # (A) 4.65 X 10*3/uL (1.80-7.70); Neutrophils % (A) 73.3 %; Platelet Count 222 X 10*3/uL (140-440); RBC 4.74 X 10*6/uL (4.40-5.60); RDW 13.2 % (11.5-14.5); WBC 6.35 X 10*3/uL (4.50-10.00)
[2024-05-29 16:30] LABS: ALT 13 U/L (10-49); AST 17 U/L (14-35); Albumin 4.3 g/dL (3.8-4.9); Albumin/Globulin Ratio 1.59 Ratio (1.60-3.17); Alkaline Phosphatase 95 U/L (41-126); BUN/Creat Ratio 24.62 Ratio (12.00-20.00); Blood Urea Nitrogen 19.7 mg/dL (9.0-27.0); Calcium 9.7 mg/dL (8.7-10.3); Carbon Dioxide 25.6 mmol/L (21.6-31.8); Chloride 101 mmol/L (96-109); Globulin 2.7 g/dL (1.6-3.3); Glucose 138 mg/dL (70-110); Potassium 4.5 mmol/L (3.5-5.5); Sodium 139 mmol/L (135-145); Total Bilirubin 0.4 mg/dL (0.3-1.2)
== END | disposition home or self-care (01) ==
LOC: LABWHC1 08:56
PROVIDERS: ATTEND Family Medicine
CPT/HCPCS: 36415; 80053; 85025

== ENCOUNTER 2024-06-29 09:04 | Day surgery (SDC) | payer BC ==
[2024-06-27 15:30] VITALS: BMI 32.5
[~2024-06-29 09:04] MED LIST changes: -DEXAMETHASONE SOD PHOSPHATE 4 MG/ML 1 ML VIAL IV ONE; -HYDROmorphone 0.5 MG/0.5 ML SYRINGE IVP PRN; -ONDANSETRON 4 MG/2 ML VIAL IVP ONE; -droPERidol 5 MG/2 ML VIAL IVP ONE
[2024-06-29 09:32] VITALS: TEMP 97.9
[2024-06-29] MEDS: IV FLUID CONTINUATION 1,000 ML IV ONE (09:32)
[2024-06-29] MEDS: ATROPINE SULFATE 0.4 MG/ML 1 ML VIAL IM ONE (09:36)
[2024-06-29] MEDS: LACTATED RINGERS 1,000 ML IV SCH (09:38)
[2024-06-29] MEDS ORDERED: MIDAZOLAM 2 MG/2 ML VIAL ONE (10:14)
[2024-06-29] MEDS ORDERED: PROPOFOL 10 MG/ML 20 ML VIAL IV ONE (10:14)
[2024-06-29] MEDS ORDERED: fentaNYL (PF) 50 MCG/ML 2 ML AMP ONE (10:14)
[2024-06-29] MEDS ORDERED: LIDOCAINE 1% INJ 10MG/ML (20 ML MDV) ONE (10:14)
[2024-06-29] MEDS ORDERED: GLYCOPYRROLATE 0.2 MG/ML 2 ML VIAL ONE (10:14)
[2024-06-29] MEDS ORDERED: KETAMINE HCL IN 0.9 % NACL 50 MG/5 ML SYRINGE ONE (10:14)
[2024-06-29 10:43] VITALS: PULSE 110
[2024-06-29 11:02] VITALS: BP 118/64; RESP 18
[2024-06-29 16:59] LABS: Appearance,BF Cloudy (Clear); RBC, Body Fluid 1400 /UL (0-2000)
--- NOTE | 2024-06-29 18:03 | PCN ---
PROCEDURE NOTE PROCEDURES PERFORMED: Bronchoscopy, airway examination, therapeutic lavage, BAL. PREOPERATIVE DIAGNOSES: Chronic obstructive pulmonary disease, retained secretions, cough. POSTOPERATIVE DIAGNOSES: Chronic obstructive pulmonary disease, retained secretions, cough. ELECTRICAL ASSISTANT: Dr. Wellington. FIRST SCALP TREATMENT OPERATOR: Linda Grande. ANESTHESIA PROVIDED: MAC, monitored anesthesia care. DESCRIPTION OF PROCEDURE: The patient's procedure was done in room #1, [facility]. There was informed consent and universal timeout. After the patient was adequately sedated and being fully monitored, the bronchoscope was inserted through the right nostril. It passed through the right nasopharynx into the oropharynx. The hypopharynx was identified. The hypopharyngeal structures, including anterior commissure, true cords, false cords, arytenoids, piriform sinuses, right and left, vallecula, and epiglottis, all appeared normal. The glottic opening was topicalized. The trachea was visualized. The trachea appeared relatively normal, although there were secretions noted throughout the trachea. They were purulent appearing. Tracheal farrukh was sharp. The right and left mainstem were topicalized. The right upper lobe and its 3 segments, the right middle lobe and its 2 segments, right lower lobe and its 5 segments, the left upper lobe proper and its 2 segments, the lingula and its 2 segments, and the left lower lobe and its 4 segments all had similar findings of diffuse [id number] airways erythema and hyperemia. There was mild mucosal friability. There was no dominant mass or tumor. There were secretions noted throughout. They were purulent appearing. They were suctioned without difficulty. Next, the bronchoscope was wedged into the right middle lobe. We did a formal BAL. 30 mL of turbid fluid was recovered, and it will be sent to the laboratory for analysis including Cytology and Microbiology. The patient tolerated the procedure well and the bronchoscope was withdrawn. There was no immediate complication. The patient will be recovered. MMODL / IJN: [id number] /
[2024-06-30 09:29] LABS: Nucleated Cells, Body Fluid 850 /UL
== END 2024-06-29 11:31 | disposition home or self-care (01) ==
LOC: ORWHC2ENDO 09:04
PROVIDERS: ATTEND Internal Medicine Critical Care Medicine
DX: J44.9 Chronic obstructive pulmonary disease, unspecified (principal); I10 Essential (primary) hypertension; G47.33 Obstructive sleep apnea (adult) (pediatric); K21.9 Gastro-esophageal reflux disease without esophagitis; Z79.890 Hormone replacement therapy; Z79.818 Long term (current) use of other agents affecting estrogen receptors and estrogen levels; Z79.51 Long term (current) use of inhaled steroids; Z79.899 Other long term (current) drug therapy; Z85.46 Personal history of malignant neoplasm of prostate
CPT/HCPCS: 89050; 87070; 87205; 87116; 87102; 87206; 31624; J2250; J0461; J2003; J3010; J2704; J1596

== ENCOUNTER 2024-07-18 08:56 | Day surgery (SDC) | payer BC ==
[2024-07-13 13:36] VITALS: BMI 32.5
[2024-07-18 09:57] VITALS: RESP 16; TEMP 97.3
[2024-07-18] MEDS: LACTATED RINGERS 1,000 ML IV SCH (10:05)
[2024-07-18] MEDS ORDERED: PROPOFOL 10 MG/ML 20 ML VIAL IV ONE (10:18)
--- NOTE | 2024-07-18 10:21 | P.GSHP ---
History of Present Illness H&P Date: 07/18/24 Chief Complaint: GI bleed 64-year-old male here for colonoscopy. Last colonoscopy 10 years ago. Recently has had some rectal bleeding. He thinks it is related to prostate cancer treatment. History of radiation. No family history of colon cancer. Past Medical History Past Medical History: Cancer, COPD, GERD/Reflux, Hypertension, Prostate Disorder, Sleep Apnea/CPAP/BIPAP Additional Past Medical History / Comment(s): prostate CA, cpap History of Any Multi-Drug Resistant Organisms: None Reported Past Surgical History: Hernia Repair, Orthopedic Surgery, Prostate Surgery Additional Past Surgical History / Comment(s): eye surgery, cataracts bilateral, bilateral knee scope, prostatectomy, colonoscopy Past Anesthesia/Blood Transfusion Reactions: No Reported Reaction Additional Past Anesthesia/Blood Transfusion Reaction / Comment(s): woke up during surgery in past, no blood transfusion Smoking Status: Never smoker - Past Family History Mother Family Medical History: No Reported History Medications and Allergies Home Medications Medication Instructions Recorded Confirmed Type Leuprolide Acetate [Lupron Depot] 7.5 mg IM Q180D 09/13/22 07/13/24 History Enzalutamide [Xtandi] 160 mg PO QAM 03/23/23 07/13/24 History lisinopriL [Zestril] 5 mg PO QAM 06/18/23 07/13/24 History Benzonatate [Tessalon Perle] 200 mg PO TID PRN #30 capsule 01/31/24 07/13/24 Rx Meclizine [Antivert] 25 mg PO TID PRN 01/31/24 07/13/24 History Albuterol Sulfate [Albuterol 1 - 2 puff PO BID 06/27/24 07/13/24 History Sulfate Hfa] Fluticasone Propion/Salmeterol 1 inhalation PO BID 07/13/24 07/13/24 History [Fluticasone-Salmeterol 500-50] Allergies Allergy/AdvReac Type Severity Reaction Status Date / Time No Known Allergies Allergy Verified 07/18/24 09:55 Surgical - Exam Vital Signs Temp Pulse Resp BP Pulse Ox 97.3 F L 80 16 129/80 100 07/18/24 09:56 07/18/24 09:56 07/18/24 09:56 07/18/24 09:56 07/18/24 09:56 Physical exam: General: Well-developed, well-nourished HEENT: Normocephalic, sclerae nonicteric Abdomen: Nontender, nondistended Extremities: No edema Neuro: Alert and oriented Assessment and Plan (1) GI bleed Narrative/Plan: Will proceed with colonoscopy at this time. Current Visit: Yes Status: Acute Code(s): K92.2 - GASTROINTESTINAL HEMORRHAGE, UNSPECIFIED SNOMED Code(s): 49209522
--- NOTE | 2024-07-18 10:38 | P.PCN ---
Date of Procedure: 07/18/24 Procedure(s) Performed: PREOPERATIVE DIAGNOSIS: GI bleed POSTOPERATIVE DIAGNOSIS: Cecal polyp, ascending colon polyp, mild proctitis, hemorrhoids PROCEDURE: Colonoscopy with snare polypectomy and clip placement ANESTHESIA: MAC SURGEON: Krishna Velásquez M.D. SPECIMENS: Polyps ENDOSCOPIC PROCEDURE: The patient was placed on the endoscopy table in the left decubitus position. The Olympus colonoscope was inserted into the anus and passed under direct visualization to the base of the cecum. The appendiceal orifice was visualized. From that point the scope was slowly withdrawn inspecting all surfaces carefully. The patient had a 5 mm polyp at the base of the cecum that was removed using the snare with cautery technique. There were 3 smaller 1 to 2 mm polyps that were fulgurated using the tip of the cautery. Given the location of the cecal polyp I placed a clip there to prevent postoperative bleeding. In the mid ascending colon another polyp was seen and removed using the snare with cautery technique. Remainder of the transverse descending sigmoid and rectum appeared normal. There was no visible diverticulosis. At the distal rectum there was noted to be mild proctitis present and small hemorrhoids. The patient was taken to the recovery room in stable condition per anesthesia guidelines. RECOMMENDATIONS: Await biopsy results. Recommend repeat colonoscopy 3 years pending pathology findings.
[2024-07-18 10:59] VITALS: BP 108/73; PULSE 71
== END 2024-07-18 11:31 | disposition home or self-care (01) ==
LOC: ORWHC2ENDO 08:56
PROVIDERS: ATTEND Surgery
DX: D12.0 Benign neoplasm of cecum (principal); D12.2 Benign neoplasm of ascending colon; K62.89 Other specified diseases of anus and rectum; K64.9 Unspecified hemorrhoids; I10 Essential (primary) hypertension; G47.33 Obstructive sleep apnea (adult) (pediatric); J44.9 Chronic obstructive pulmonary disease, unspecified; C61 Malignant neoplasm of prostate; K21.9 Gastro-esophageal reflux disease without esophagitis; Z79.818 Long term (current) use of other agents affecting estrogen receptors and estrogen levels; Z79.890 Hormone replacement therapy; Z79.51 Long term (current) use of inhaled steroids; Z79.899 Other long term (current) drug therapy; Z92.3 Personal history of irradiation
CPT/HCPCS: 45385; J2704; 88305

== ENCOUNTER → 2024-11-28 | Outpatient (CLI) | payer BC | END | disposition home or self-care (01) | LOC: LABWHC1 09:11 | PROVIDERS: ATTEND Urology | DX: C61 Malignant neoplasm of prostate (principal) | CPT/HCPCS: 36415; 84153 ==

== ENCOUNTER → 2025-02-06 | Outpatient (CLI) | payer BC ==
--- NOTE | 2025-02-06 20:32 | XR ---
EXAMINATION TYPE: XR ribs bilat w pa chest xray DATE OF EXAM: 02/06/2025 11:35 AM COMPARISON: None. CLINICAL INDICATION: Male, 65 years old with history of R07.81 PLEURODYNIA, TECHNIQUE: Single view of the chest 8 views of the ribs are submitted. FINDINGS: The lungs are clear. No Evidence for pneumothorax. No evidence for focal contusion. Mediastinal st ructures are midline. Evaluation of the ribs fails to demonstrate evidence for displaced rib fractur e or secondary sign of rib fracture. IMPRESSION: Negative study [facility] Sarah Bergman, , 02/06/2025 8:30 PM
== END | disposition home or self-care (01) ==
LOC: RADXRMAIN 10:52
DX: R07.81 Pleurodynia (principal)
CPT/HCPCS: 71111